=== PATIENT | male | born 1995 | race African-American/Black ===

== ENCOUNTER 2018-07-26 04:10 | Emergency (ER) | payer SELFPAY ==
[~2018-07-26] VITALS: Ht 185.4 cm; Wt 89.4 kg
[2018-07-26] MEDS ORDERED: IBUPROFEN 600MG TABLET PO ONE (06:15)
[2018-07-26 06:58] VITALS: BP 126/55
== END 2018-07-26 07:00 | disposition home or self-care (01) ==
LOC: ER 04:10
DX: M79.18 Myalgia, other site (principal); M54.2 Cervicalgia
CPT/HCPCS: 99282